=== PATIENT | female | born 1980 | race Two or more races ===

== ENCOUNTER → 2018-07-28 | Outpatient (CLI) | payer BC ==
[2018-07-28 11:52] LABS: Basophils # (auto) 0 uL; Basophils % (auto) 0.1 % (0.0-2.0); Eosinophils # (auto) 0.1 uL; Eosinophils % (auto) 0.8 % (0.0-7.0); Hematocrit 37.6 % (36.0-46.0); Hemoglobin 12.8 g/dL (12.2-16.2); Lymphocytes # (auto) 2.1 uL; Lymphocytes % (auto) 18.4 % (10.0-50.0); Mean Corpuscular Hemoglobin 29.1 pg (28.0-32.0); Mean Corpuscular Hgb Conc. 33.9 g/dL (32.0-36.0); Mean Corpuscular Volume 85.9 fL (80.0-100.0); Monocytes # (auto) 0.5 uL; Monocytes % (auto) 4.2 % (0.0-12.0); Neutrophils # (auto) 8.8 uL; Neutrophils % (auto) 76.5 % (37.0-80.0); Nucleated Red Blood Cells % 0.1 %; Platelet Count (auto) 255 10^3/uL (140-450); Red Blood Cells 4.38 10^6/uL (4.0-5.20); Red Cell Distribution Width 14.9 % (11.8-14.3); White Blood Cell 11.5 10^3/uL (4.4-10.8)
[2018-07-28 12:42] LABS: Alcohol, Urine < 3.0 mg/dL (0-5); Amphetamine Screen, Urine NEGATIVE (NEGATIVE); Barbiturate Scree,Urine NEGATIVE (NEGATIVE); Benzodiazephine Screen, Urine NEGATIVE (NEGATIVE); Cannabinoid Screen, Urine NEGATIVE (NEGATIVE); Cocaine Screen, Urine NEGATIVE (NEGATIVE); Opiate Scree,Urine NEGATIVE (NEGATIVE); Phencyclidine Screen, Urine NEGATIVE (NEGATIVE)
[2018-07-29 06:06] LABS: RPR Non Reactive (Non Reactive)
== END | disposition home or self-care (01) ==
LOC: LAB 09:37
PROVIDERS: ATTEND Obstetrics & Gynecology
DX: O09.91 Supervision of high risk pregnancy, unspecified, first trimester (principal); Z20.2 Contact with and (suspected) exposure to infections with a predominantly sexual mode of transmission; Z3A.01 Less than 8 weeks gestation of pregnancy
CPT/HCPCS: 36415; 80307; 83036; 84702; 85025; 86592; 86703; 86762; 86850; 86900; 86901; 87086; 87088; 87186; 87340

== ENCOUNTER 2018-10-28 18:57 | Observation (INO) | payer BC | END 2018-10-28 20:40 | disposition home or self-care (01) | DRG 998 | LOC: LDRP 18:57 | PROVIDERS: ADMIT Specialist; ATTEND Specialist | DX: O69.5XX2 Labor and delivery complicated by vascular lesion of cord, fetus 2 (principal); O09.523 Supervision of elderly multigravida, third trimester; Z3A.30 30 weeks gestation of pregnancy | CPT/HCPCS: 59025; 76818; 81002; G0378 ==

== ENCOUNTER 2018-10-31 15:05 | Observation (INO) | payer BC | END 2018-10-31 16:20 | disposition home or self-care (01) | DRG 998 | LOC: LDRP 15:05 | PROVIDERS: ADMIT Specialist; ATTEND Specialist | DX: O69.5XX2 Labor and delivery complicated by vascular lesion of cord, fetus 2 (principal); O09.523 Supervision of elderly multigravida, third trimester; Z3A.30 30 weeks gestation of pregnancy | CPT/HCPCS: 59025; 76818; 81002; G0378 ==

== ENCOUNTER 2018-11-08 14:59 | Observation (INO) | payer BC ==
[2018-11-08] MEDS ORDERED: PREN-153 PO (16:06)
== END 2018-11-08 16:20 | disposition home or self-care (01) | DRG 998 ==
LOC: LDRP 14:59
PROVIDERS: ADMIT Specialist; ATTEND Specialist
DX: O69.5XX2 Labor and delivery complicated by vascular lesion of cord, fetus 2 (principal); O09.523 Supervision of elderly multigravida, third trimester; O26.893 Other specified pregnancy related conditions, third trimester; N89.8 Other specified noninflammatory disorders of vagina; Z3A.31 31 weeks gestation of pregnancy
CPT/HCPCS: 59025; 76818; 81002; G0378

== ENCOUNTER 2018-11-15 14:56 | Observation (INO) | payer MEDICAID ==
[~2018-11-15] VITALS: Ht 152.4 cm; Wt 83.0 kg
[~2018-11-15 14:56] MED LIST: PREN-153 PO
== END 2018-11-15 15:50 | disposition home or self-care (01) | DRG 560 ==
LOC: LDRP 14:56
PROVIDERS: ADMIT Specialist; ATTEND Specialist
DX: O69.5XX2 Labor and delivery complicated by vascular lesion of cord, fetus 2 (principal); O09.523 Supervision of elderly multigravida, third trimester; Z3A.32 32 weeks gestation of pregnancy
CPT/HCPCS: 59025; 76818; 81002; G0378

== ENCOUNTER 2018-11-22 11:15 | Observation (INO) | payer BC ==
[~2018-11-22] VITALS: Ht 152.4 cm; Wt 84.8 kg
== END 2018-11-22 12:35 | disposition home or self-care (01) | DRG 998 ==
LOC: LDRP 11:15
PROVIDERS: ADMIT Specialist; ATTEND Specialist
DX: O69.5XX2 Labor and delivery complicated by vascular lesion of cord, fetus 2 (principal); O09.523 Supervision of elderly multigravida, third trimester; Z3A.33 33 weeks gestation of pregnancy
CPT/HCPCS: 76818; G0378; 59025; 81002

== ENCOUNTER 2018-11-29 16:45 | Observation (INO) | payer BC | END 2018-11-29 18:15 | disposition home or self-care (01) | DRG 998 | LOC: LDRP 16:45 | PROVIDERS: ADMIT Specialist; ATTEND Specialist | DX: O69.5XX2 Labor and delivery complicated by vascular lesion of cord, fetus 2 (principal); O12.03 Gestational edema, third trimester; O09.523 Supervision of elderly multigravida, third trimester; Z3A.34 34 weeks gestation of pregnancy | CPT/HCPCS: 59025; 76818; 81002; G0378 ==

== ENCOUNTER 2018-12-07 10:25 | Observation (INO) | payer BC | END 2018-12-07 11:35 | disposition home or self-care (01) | DRG 998 | LOC: LDRP 10:25 | PROVIDERS: ADMIT Specialist; ATTEND Specialist | DX: O69.5XX2 Labor and delivery complicated by vascular lesion of cord, fetus 2 (principal); O09.523 Supervision of elderly multigravida, third trimester; Z3A.36 36 weeks gestation of pregnancy | CPT/HCPCS: 76818; G0378; 59025; 81002 ==

== ENCOUNTER 2018-12-14 10:00 | Observation (INO) | payer BC | END 2018-12-14 11:15 | disposition home or self-care (01) | DRG 998 | LOC: LDRP 10:00 | PROVIDERS: ADMIT Obstetrics & Gynecology; ATTEND Obstetrics & Gynecology | DX: O69.5XX0 Labor and delivery complicated by vascular lesion of cord, not applicable or unspecified (principal); Z3A.37 37 weeks gestation of pregnancy | CPT/HCPCS: 59025; 76818; 81002; G0378 ==

== ENCOUNTER 2018-12-22 11:19 | Observation (INO) | payer BC | END 2018-12-22 13:15 | disposition home or self-care (01) | DRG 833 | LOC: LDRP 11:19 | PROVIDERS: ADMIT Specialist; ATTEND Specialist | DX: O10.913 Unspecified pre-existing hypertension complicating pregnancy, third trimester (principal); Z3A.38 38 weeks gestation of pregnancy | CPT/HCPCS: 59025; 76818; 81002; G0378 ==

== ENCOUNTER 2018-12-26 11:40 | Inpatient (IN) | payer BC ==
[~2018-12-26] VITALS: Ht 152.4 cm; Wt 87.5 kg
[2018-12-26] MEDS ORDERED: LACT. RINGERS/OXYTOCIN 20UNITS 1,000 ML IV SCH (12:01)
[2018-12-26] MEDS ORDERED: LIDOCAINE 2%HCL (LOCAL ANESTH.) INJ 20ML MDV ONE (12:06)
[2018-12-26] MEDS: LACTATED RINGER'S 1,000 ML IV SCH (12:06)
[2018-12-26] MEDS ORDERED: LACT. RINGERS/OXYTOCIN 20UNITS 1,000 ML IV ONE (12:07)
[2018-12-26] MEDS ORDERED: METHYLERGONOVINE MALEATE 0.2 MG/ML AMP IM ONE (12:07)
[2018-12-26] MEDS ORDERED: DERMOPLAST 60ML BOTTLE TOP PRN (12:15)
[2018-12-26] MEDS ORDERED: PHISODERM TOP SOLN 240ML BTL TOP PRN (12:15)
[2018-12-26] MEDS ORDERED: WITCH HAZEL-GLYCERIN PAD TOP PRN (12:15)
[2018-12-26] MEDS ORDERED: METHYLERGONOVINE MALEATE 0.2 MG/ML AMP IM PRN (12:15)
[2018-12-26] MEDS ORDERED: LIDOCAINE 2%HCL (LOCAL ANESTH.) INJ 20ML MDV ID ONE (12:15)
[2018-12-26 13:28] LABS: Basophils # (auto) 0 uL; Basophils % (auto) 0.3 % (0.0-2.0); Eosinophils # (auto) 0 uL; Eosinophils % (auto) 0.2 % (0.0-7.0); Hematocrit 38.1 % (36.0-46.0); Hemoglobin 12.7 g/dL (12.2-16.2); Lymphocytes # (auto) 2.4 uL; Lymphocytes % (auto) 16.7 % (10.0-50.0); Mean Corpuscular Hemoglobin 27.8 pg (28.0-32.0); Mean Corpuscular Hgb Conc. 33.4 g/dL (32.0-36.0); Mean Corpuscular Volume 83.2 fL (80.0-100.0); Monocytes # (auto) 0.6 uL; Monocytes % (auto) 4.1 % (0.0-12.0); Neutrophils # (auto) 11.2 uL; Neutrophils % (auto) 78.7 % (37.0-80.0); Nucleated Red Blood Cells % 0.2 %; Platelet Count (auto) 202 10^3/uL (140-450); Red Blood Cells 4.58 10^6/uL (4.0-5.20); Red Cell Distribution Width 15.2 % (11.8-14.3); White Blood Cell 14.3 10^3/uL (4.4-10.8)
[2018-12-26 13:46] LABS: INR < 0.93 (0.9-1.15); Partial Thromboplastin Time 25.8 sec (23.64-32.05)
[2018-12-26 14:00] LABS: Potassium 3.2 mmol/L (3.5-5.1)
[2018-12-26 14:09] LABS: Albumin 2.6 g/dL (3.4-5.0); BUN/Creatinine Ratio 11.8; Bilirubin, Total 0.3 mg/dL (0.2-1.0); Calcium 8.6 mg/dL (8.5-10.1); Total Protein 7.1 g/dL (6.4-8.2)
[2018-12-26 14:40] LABS: Alcohol, Urine < 3.0 mg/dL (0-5); Amphetamine Screen, Urine NEGATIVE (NEGATIVE); Barbiturate Scree,Urine NEGATIVE (NEGATIVE); Benzodiazephine Screen, Urine NEGATIVE (NEGATIVE); Cannabinoid Screen, Urine NEGATIVE (NEGATIVE); Cocaine Screen, Urine NEGATIVE (NEGATIVE); Opiate Scree,Urine NEGATIVE (NEGATIVE); Phencyclidine Screen, Urine NEGATIVE (NEGATIVE)
[2018-12-26 14:57] LABS: Urine Bacteria FEW /hpf (None Seen); Urine Blood 1+ /uL (Negative); Urine Mucus FEW (None Seen); Urine Specific Gravity 1.026 (1.001-1.035); Urine WBC 10 /hpf (0 - 5)
--- NOTE | 2018-12-26 16:55 | NUR ---
Teaching: Reviewed information in [facility] booklet with patient. Discussed benefits of and risks associated with not . Discussed different positions, proper latch, feeding cues, and baby-led . Provided information of medication side effects related to . All questions and concerns addressed at this time. Patient verbalized understanding of information.
[2018-12-26 18:09] VITALS: BP 151/75
--- NOTE | 2018-12-26 18:10 | NUR ---
Ambulation: Patient OOB with standby assistance by RN. Patient ambulated to bathroom with steady gait. Patient able to void 400ml without difficulty. [facility] teaching provided with returned demonstration by patient. Clean gown provided and bed linen changed. Patient ambulated back to bed with steady gait and no distress noted.
[2018-12-26 18:35] VITALS: BP 143/67
--- NOTE | 2018-12-26 20:45 | NUR ---
PT REPORT GIVEN TO Shekhar OSORIO RN ON STABLE , RELINQUISHED CARE. NO DISTRESS NOTED.
[2018-12-26 23:30] VITALS: BP 147/75
[2018-12-27 03:00] VITALS: BP 145/74
[2018-12-27] MEDS ORDERED: TETANUS-DIPTH-ACEL PERTUSSIS 0.5ML SYRG IM ONE (03:15)
[2018-12-27 05:06] LABS: RPR Non Reactive (Non Reactive)
--- NOTE | 2018-12-27 06:50 | NUR ---
Tegan ROMERO NOTIFIED OF PTS POTASSIUM LEVEL OF 3.2. ORDERS RECEIVED TO CONTINUE WITH CURRENT PLAN OF CARE. WILL CONTINUE TO MONITOR. Addendum: 12/27/18 at 2007 by Ирина Woodson RN Tegan ROMERO NOTIFIED OF PTS TRENDING VITAL SINGS. ORDERS RECEIVED TO CONTINUE TO MONITOR. READ BACK AND VERIFIED. WILL CARRY OUT.
[2018-12-27 06:55] VITALS: BP 142/87
[2018-12-27 11:00] VITALS: BP 146/79
[2018-12-27 15:00] VITALS: BP 149/86
--- NOTE | 2018-12-27 15:27 | NUR ---
PLACED IN OPEN CRIB TO RETURN BACK TO ROOM 3 WITH MOTHER. UPON LEAVING NURSERY SPIT UP APPROXIMALLY 2MLS OF BROWNISH/REDDISH BLOODY MUCOUS. PLACED BACK TO RADIANT WARMER AND RN SUCTIONED WITH BULB SYRINGED REMAINING MUCOUS IN INFANTS MOUTH. Janneth LINARES RN AT [facility] ASSISTING THIS RN. VITAL SIGNS TAKEN: HR 150BPPM, RESPIRATIONS 46, SHALLOW, O2 SATURATION 95% ON ROOM AIR. MUSIC PROFESSIONALSDMITRY LOCKETT MADE AWARE AND IN NURSERY. WILL CONTINUE TO MONITORS AND REASSESS. Addendum: 12/27/18 at 1902 by Ирина Woodson RN DISREGARD NOTE, WRONG PATIENT
[2018-12-27] MEDS: IBUPROFEN 600 MG TAB PO PRN (15:34)
--- NOTE | 2018-12-27 15:42 | NUR ---
OSMAN RAM NOTIFIED DR. RAM THAT SPIT UP APPROXIMALLY 2MLS OF BROWNISH/REDDISH BLOODY MUCOUS, RECENT VITAL SIGNS, HR 150BPM, RR 50, SHALLOW, O2 SAT ON ROOM AIR IS 97%, STOMACH APPEARS DISTENDED. ORDERS RECEIVED FROM DR. RAM FOR CBC, BLOOD CULTURE, D10% AT 80MG/KG/DAY, RATE 13.33ML/HR AND HE STATED IS ON HIS WAY. Amado SWEENEY RN GIVEN STATUS UPDATE ON , RELINQUISHED CARE. Addendum: 12/27/18 at 1905 by Ирина Woodson RN DISREGARD NOTE, WRONG PATIENT
--- NOTE | 2018-12-27 16:20 | NUR ---
PT STATES "MY IV IS FALLING OUT, IT GOT CAUGHT ON MY GOWN." ASSESSED PATIENTS IV, IV CATHETER HANGING OFF PTS HAND BUT CATHETER INTACT. PRESSURE DRESSING APPLIED, PT TOLERATED WELL. WILL CONTINUE TO MONITOR.
[2018-12-27 19:00] VITALS: BP 162/92
--- NOTE | 2018-12-27 19:00 | NUR ---
Elevated blood pressures SBAR and update to Dr. Fairbanks regarding this patient, including but not limited to patient's blood pressure trend and current reading of 162/92. Orders to begin labetalol 100mg PO BID and for stat Uric Acid/ CMP to be drawn. Patient is not to be discharged tonight. Continue current plan of care.
[2018-12-27 20:04] LABS: Albumin 2.2 g/dL (3.4-5.0); Potassium 3.9 mmol/L (3.5-5.1)
[2018-12-27 20:08] LABS: Bilirubin, Total 0.2 mg/dL (0.2-1.0); Total Protein 6.1 g/dL (6.4-8.2); Uric Acid 7.4 mg/dL (2.6-6.0)
[2018-12-27] MEDS: LACTATED RINGER'S 1,000 ML IV SCH (20:58)
[2018-12-27] MEDS: LABETALOL HCL 200 MG TAB PO SCH (21:00)
--- NOTE | 2018-12-27 21:06 | NUR ---
Update SBAR and update to Amado Juarez CNM including but not limited to pt's lab draw results, uric 7.4, and recent blood pressure of 151/106. Continue current plan of care and reassess blood pressure in one hour, see emar.
[2018-12-27 23:00] VITALS: BP 145/85
[2018-12-28 03:00] VITALS: BP 145/91
[2018-12-28] MEDS: LACTATED RINGER'S 1,000 ML IV SCH (03:19)
[2018-12-28 06:52] VITALS: BP 140/79
[2018-12-28] MEDS: LABETALOL HCL 200 MG TAB PO SCH ×2 (10:00→22:00)
[2018-12-28 11:00] VITALS: BP 144/80
[2018-12-28] MEDS: IBUPROFEN 600 MG TAB PO PRN ×2 (11:35→23:05)
--- NOTE | 2018-12-28 11:57 | NUR ---
REPORT RECEIVED ON THE PT , RESUME CARE.
--- NOTE | 2018-12-28 12:15 | NUR ---
DR. LONDON AWARE THAT PATIENT HAS NOT BEEN TAKING MEDICATION FOR PAIN. PER DR. LONDON HOLD MEDICATION LABETALOL 100 MG/ BID FOR NOW AND GIVE IF SYSTOLIC IS SAME OR GREATER THEN 160/ AND OR DIASTOLIC IS [address] LONDON IN NURSING STATION AND STATES CALL WITH RESULTS OF UA WHEN ITS POSTED. GAVE REPORT TO DMITRY GUILLAUME AT 1157 AM. AMN RN ALSO AT NURSING STATION AND HEARD ORDERS .
--- NOTE | 2018-12-28 12:18 | NUR ---
dr. hooper in nursing station at 0730 aware of all patients blood pressure and states keep her here another night .
--- NOTE | 2018-12-28 12:21 | NUR ---
VITAL SIGNS TAKEN: BP 149/77, HR 86, RR 16. TEMP 97.6
[2018-12-28 12:50] LABS: Urine Bacteria MANY /hpf (None Seen); Urine Blood 2+ /uL (Negative); Urine Mucus FEW (None Seen); Urine Specific Gravity 1.011 (1.001-1.035); Urine WBC 183 /hpf (0 - 5)
--- NOTE | 2018-12-28 13:23 | NUR ---
DR LONDON GIVEN REPORT ON THE PT WITH UA RESULTS, NO NEW ORDERS RECEIVED AT THIS TIME.
--- NOTE | 2018-12-28 14:25 | NUR ---
PT REPORT RECEIVED FROM Amado SWEENEY RN ON STABLE PATIENT, ASSUMING CARE.
[2018-12-28 15:00] VITALS: BP 145/87
[2018-12-28 19:00] VITALS: BP 154/74
--- NOTE | 2018-12-28 20:30 | NUR ---
NOTIFIED DR. LONDON, STATUS UPDATE GIVEN, TRENDING VITAL SIGNS GIVEN. ORDERS RECEIVED FROM DR. LONDON TO HOLD 2200 100MG LABETALOL. READ BACK AND VERIFIED ORDERS. WILL CARRY OUT.
[2018-12-28 22:45] VITALS: BP 148/72
[2018-12-29 03:00] VITALS: BP 139/73
[2018-12-29 07:00] VITALS: BP 131/62
--- NOTE | 2018-12-29 08:20 | NUR ---
Discharge: Discharge instructions given as ordered. Pt encouraged to follow up with [facility] as instructed. All questions and concerns addressed. Patient verbalized understanding. Medication reconciliation completed and copy given to patient. All required/requested vaccines given and copies of vaccinations given to patient. Patient encouraged to prepare to depart unit.
--- NOTE | 2018-12-29 09:20 | NUR ---
Discharge: Patient taken to vehicle via ambulation refusing wheelchair with all personal belongings, accompanied by staff and family member. No distress noted at time of departure, no adverse changes in status since initial assessment.
== END 2018-12-29 09:20 | disposition home or self-care (01) | DRG 807 ==
LOC: LDRP 11:40
PROVIDERS: ADMIT Specialist; ATTEND Specialist
PROC: 10E0XZZ Delivery of Products of Conception, External Approach (ICD-10-PCS; principal; 2018-12-26)
PROC: 10907ZC Drainage of Amniotic Fluid, Therapeutic from Products of Conception, Via Natural or Artificial Opening (ICD-10-PCS; 2018-12-26)
DX: O77.0 Labor and delivery complicated by meconium in amniotic fluid (principal); Z37.0 Single live birth; O69.81X0 Labor and delivery complicated by cord around neck, without compression, not applicable or unspecified; Z23 Encounter for immunization; Z3A.38 38 weeks gestation of pregnancy; R03.0 Elevated blood-pressure reading, without diagnosis of hypertension; O90.89 Other complications of the puerperium, not elsewhere classified
CPT/HCPCS: 36415; 59025; 80053; 80307; 81001; 81002; 84112; 84550; 85025; 85610; 85730; 86592; 86850; 86900; 86901; 90715; 96361; G0378; J2590

== ENCOUNTER 2019-02-24 07:32 | Day surgery (SDC) | payer BC ==
[~2019-02-24] VITALS: Ht 152.4 cm; Wt 78.9 kg
[2019-02-24] MEDS ORDERED: ceFAZolin 1GM/50ML 50 ML IV ONE (08:04)
[2019-02-24] MEDS ORDERED: MEPERIDINE HCL (25 MG/ML) 1ML VIAL ONE (08:34)
[2019-02-24] MEDS ORDERED: MIDAZOLAM HCL 1MG/1ML-2 ML VIAL ONE (08:34)
[2019-02-24] MEDS ORDERED: fentaNYL CITRATE 100 MCG/2 ML VL ONE (08:34)
[2019-02-24] MEDS ORDERED: ONDANSETRON HCL 4 MG/2 ML VIAL ONE (08:35)
[2019-02-24] MEDS ORDERED: NEOSTIGMINE 1 MG/ML INJ (10mg/10ML VIAL) ONE (08:35)
[2019-02-24] MEDS ORDERED: GLYCOPYRROLATE 0.2 MG/ML 1ML VIAL ONE (08:35)
[2019-02-24] MEDS ORDERED: PROPOFOL 10 MG/ML 20 ML IV ONE (08:35)
[2019-02-24] MEDS ORDERED: KETOROLAC TROMETH 60MG/2ML VIAL ONE (08:35)
[2019-02-24] MEDS ORDERED: ROCURONIUM 10MG/ML 10ML VIAL IV ONE (08:35)
[2019-02-24] MEDS ORDERED: SODIUM CHLORIDE LOCK 10 ML ONE (08:35)
[2019-02-24] MEDS ORDERED: HYDROmorphone HCL 2 MG/ML VL IV PRN (09:00)
[2019-02-24] MEDS ORDERED: KETOROLAC TROMETH 30 MG/ML 1ML VIAL IV ONE (09:00)
[2019-02-24] MEDS ORDERED: fentaNYL CITRATE 100 MCG/2 ML VL IV PRN (09:00)
[2019-02-24] MEDS ORDERED: METOCLOPRAMIDE HCL 5MG/ml INJ 2ml VIAL IV PRN (09:00)
[2019-02-24] MEDS ORDERED: LACTATED RINGER'S 1,000 ML IV SCH (10:32)
[2019-02-24] MEDS ORDERED: ONDANSETRON HCL 4 MG/2 ML VIAL IV PRN (10:45)
[2019-02-24 11:15] VITALS: BP 155/64
== END 2019-02-24 11:24 | disposition home or self-care (01) ==
LOC: SUR 07:32
PROVIDERS: ATTEND Specialist
DX: Z30.2 Encounter for sterilization (principal); E66.8 Other obesity; Z98.890 Other specified postprocedural states; Z68.36 Body mass index [BMI] 36.0-36.9, adult
CPT/HCPCS: 58671; 86850; 86900; 86901; J0690; J1885; J2175; J2250; J2405; J2704; J3010; J7030